=== PATIENT | female | born 1970 | race Caucasian/White ===

== ENCOUNTER 2021-02-09 02:13 | Emergency (ER) | payer OTHER ==
[~2021-02-09 02:13] MED LIST: ALPRAZOLAM 1MG T1 MG PO; AMITRIPTYLINE100 MG PO; FLINTSTONES WIT18 MG PO; LASIX40 MG PO; LEVOTHROID 0.0.15 MG PO; METFORMIN HCL500 M1 PO; OMEPRAZOLE40 MG PO; PHENERGAN25 M1 PO; PREDNISONE 20MG20 MG PO; PROAIR HFA8.5 GM INH; STIOLTO RESPIMAT; TOPIRAMATE50 MG PO; TYLENOL #31 EACH PO
[2021-02-09 03:29] LABS: BILIRUBIN NEGATIVE (NEGATIVE); BLOOD 2+ Ery/uL (NEGATIVE); COLOR YELLOW (YELLOW); GLUCOSE (U) NORMAL (NORMAL); LEUKOCYTES NEGATIVE Leu/uL (NEGATIVE); NITRITE NEGATIVE (NEGATIVE); PROTEIN NEGATIVE (NEGATIVE); pH 6.5 (5.0-9.0)
[2021-02-09 03:31] LABS: BASOPHIL 0.6 % (0-2); EOSINOPHIL 3.6 % (0-5); HCT 50.9 % (37.0-47.0); HGB 16.4 g/dl (12.5-16.0); LYMPHOCYTE 31.4 % (15-48); MCHC 32.2 g/dL (32.0-36.0); MCV 99.2 fL (78.0-100.0); MONOCYTE 6.9 % (0-12); MPV 14.4 fL (6.0-9.5); NEUTROPHIL 57.4 % (41-80); NRBC 0; PLT 163 K/uL (150-400); RBC 5.13 M/uL (4.20-5.40); WBC 8.4 K/uL (4.0-10.5)
[2021-02-09 03:36] LABS: CLARITY SLIGHTLY HAZY (CLEAR)
[2021-02-09 03:37] LABS: BACTERIA TRACE; URINARY RBC 20-50
[2021-02-09 03:48] LABS: ALBUMIN 3.9 g/dL (3.4-5.0); BILIRUBIN - TOTAL 0.3 mg/dL (0.2-1.0); BUN/CREAT RATIO (CALC) 18.8 RATIO; C-REACTIVE PROTEIN 0.4 mg/dL (<=0.90); CREATININE 0.64 mg/dL (0.51-0.95); POTASSIUM 3.9 mmol/L (3.5-5.1); TOTAL PROTEIN 7.9 g/dL (6.4-8.2)
[2021-02-09] MEDS ORDERED: ZANAFLEX4 M1 PO (06:27)
== END 2021-02-09 06:53 | disposition home or self-care (01) ==
LOC: FER 02:13
PROVIDERS: Emergency Medicine
DX: M54.6 Pain in thoracic spine (principal); I10 Essential (primary) hypertension; F17.210 Nicotine dependence, cigarettes, uncomplicated; Z98.890 Other specified postprocedural states; Z79.84 Long term (current) use of oral hypoglycemic drugs; Z79.899 Other long term (current) drug therapy
CPT/HCPCS: 36415; 71260; 80053; 81001; 84145; 85025; 85379; 86140; J1170; J2405; J7030; Q9967